=== PATIENT | male | born 1980 | race Two or more races ===

== ENCOUNTER 2023-11-18 14:19 | Emergency (ER) | payer OTHER ==
[~2023-11-18] VITALS: Ht 180.3 cm; Wt 81.6 kg
[2023-11-18] MEDS ORDERED: KETOROLAC TROMETHAMINE 60 MG VIAL IM ONE ×2 (15:30→15:44)
[2023-11-18] MEDS ORDERED: DICLOFENAC SODI50 MG PO (18:38)
== END 2023-11-18 18:54 | disposition home or self-care (01) ==
LOC: ER 14:21
DX: M25.571 Pain in right ankle and joints of right foot (principal); M25.561 Pain in right knee
CPT/HCPCS: 72100; 73560; 73610; 96372; 99283; J1885

== ENCOUNTER → 2024-08-05 | Emergency (ER) | payer OTHER ==
[~2024-08-05] VITALS: Ht 180.3 cm; Wt 81.6 kg
[~2024-08-05] MED LIST: ACETAMINOPHEN 500 MG GEL..CAP PO ONE; ACETAMINOPHEN 500 MG GEL..CAP PO STA; DICLOFENAC SODI50 MG PO; KETOROLAC TROMETHAMINE 60 MG VIAL IM ONE; KETOROLAC TROMETHAMINE 60 MG VIAL IM STA
== END | disposition home or self-care (01) ==
LOC: ER 16:41
DX: M25.59 Pain in other specified joint (principal)
CPT/HCPCS: 96372; 99282; J1885